=== PATIENT | female | born 1950 | race Caucasian/White ===

== ENCOUNTER 2018-05-28 13:33 | Emergency (ER) | payer BC, MEDICARE, OTHER ==
[2018-05-28 14:00] VITALS: BP 143/62
--- NOTE | 2018-05-28 14:31 | UC ---
Complaint Female HPI - HPI Summary HPI Summary: Patient urgent care today with chief complaint of low back pain and urinary frequency on for 7 days denies fevers chills nausea vomiting. - History Of Current Complaint Hx Obtained From: Patient Hx Last Menstrual Period: n/a ?: No Onset/Duration: Sudden Onset, Lasting Days - 7, Still Present Timing: Constant Severity Currently: Mild Character: Burning, Cramping Aggravating Factor(s): Urination Associated Signs And Symptoms: Positive: Back Pain <Mayuri Brown - Last Filed: 05/28/18 16:59> <Lyle Dyer - Last Filed: 05/29/18 07:01> - History Of Current Complaint Chief Complaint: UCGU Stated Complaint: STOMACH ACHE,URINARY Time Seen by Provider: 05/28/18 14:14 - Allergies/Home Medications Allergies/Adverse Reactions: Allergies Allergy/AdvReac Type Severity Reaction Status Date / Time No Known Allergies Allergy Verified 05/28/18 13:53 Home Medications: Home Medications Budesonide/Formote 160/4.5(NF) [Symbicort 160/4.5 (NF)] 1 puff INH BID 05/28/18 [History Confirmed 05/28/18] PMH/Surg Hx/FS Hx/Imm Hx Endocrine History: Dyslipidemia Cardiovascular History: Hypertension Respiratory History: Asthma GI/ History: Gastroesophageal Reflux - Surgical History Surgical History: Yes Surgery Procedure, Year, and Place: Spinal Stenosis (rods) Repair, 01/01/14, [facility] Bilateral Carpal Tunnel, [facility] - Family History Known Family History: Positive: Hypertension - Social History Occupation: Retired Lives: With Family Alcohol Use: None Substance Use Type: None Smoking Status (MU): Never Smoked Tobacco - Immunization History Most Recent Influenza Vaccination: FALL 2013 <Mayuri Brown - Last Filed: 05/28/18 16:59> Review of Systems Constitutional: Negative Skin: Negative Eyes: Negative ENT: Negative Respiratory: Negative Cardiovascular: Negative Gastrointestinal: Negative Genitourinary: Dysuria, Frequency, Urgency Motor: Negative Neurovascular: Negative Musculoskeletal: Negative Neurological: Negative Psychological: Negative Is Patient Immunocompromised?: No All Other Systems Reviewed And Are Negative: Yes <Mayuri Brown - Last Filed: 05/28/18 16:59> Physical Exam Triage Information Reviewed: Yes Appearance: Well-Appearing, No Pain Distress, Well-Nourished Vital Signs: Initial Vital Signs Temp 98 F 05/28/18 13:56 Pulse 69 05/28/18 13:56 Resp 18 05/28/18 13:56 BP 143/62 05/28/18 13:56 Pulse Ox 100 05/28/18 13:56 Vital Signs Reviewed: Yes Eye Exam: Normal Eyes: Positive: Conjunctiva Clear ENT Exam: Normal ENT: Positive: Normal ENT inspection, Hearing grossly normal. Negative: Trismus , Muffled voice, Hoarse voice Dental Exam: Normal Neck exam: Normal Neck: Positive: Supple, Nontender Respiratory Exam: Normal Respiratory: Positive: Chest non-tender, No respiratory distress, No accessory muscle use Cardiovascular Exam: Normal Cardiovascular: Positive: RRR, Pulses Normal, Brisk Capillary Refill Abdominal Exam: Normal Abdomen Description: Positive: No Organomegaly, Soft, Other: - Supra pubic discomfort. Negative: CVA Tenderness (R), CVA Tenderness (L) Bowel Sounds: Positive: Present Musculoskeletal Exam: Normal Musculoskeletal: Positive: Strength Intact, ROM Intact, No Edema Neurological Exam: Normal Neurological: Positive: Alert, Muscle Tone Normal Psychological Exam: Normal Skin Exam: Normal <Mayuri Brown - Last Filed: 05/28/18 16:59> Vital Signs: Initial Vital Signs Temp 98 F 05/28/18 13:56 Pulse 69 05/28/18 13:56 Resp 18 05/28/18 13:56 BP 143/62 05/28/18 13:56 Pulse Ox 100 05/28/18 13:56 <Lyle Dyer - Last Filed: 05/29/18 07:01> Diagnostics - Laboratory Diagnostic Studies Completed/Ordered: Urine leukoesterace +1 <Mayuri Brown - Last Filed: 05/28/18 16:59> Complaint Female Dx - Course Course Of Treatment: increase fluids, azo bactrim culture urine follow with pcp prn - Differential Dx/Diagnosis Provider Diagnoses: Urinary frequency UTI, hypertension in poor control <Mayuri Brown - Last Filed: 05/28/18 16:59> Discharge - Sign-Out/Discharge Documenting (check all that apply): Discharge/Admit/Transfer - Billing Disposition and Condition Condition: STABLE Disposition: Home <Mayuri Brown - Last Filed: 05/28/18 16:59> - Billing Disposition and Condition Condition: STABLE Disposition: Home <Lyle Dyer - Last Filed: 05/29/18 07:01> - Discharge Plan Condition: Stable Disposition: HOME Prescriptions: Phenazopyridine TAB* [Pyridium 100 mg TAB*] 100 mg PO TID PRN #9 tab PRN Reason: urinary pain and burning Sulfamethox/Trimethoprim DS* [Bactrim DS 800/160 TAB*] 1 tab PO BID #14 tab Patient Education Materials: Phenazopyridine (By mouth), Urinary Tract Infection in Women (ED), Hypertension (ED) Referrals: Sujata Hua PA [Primary Care Provider] - 1 Week Additional Instructions: Per institutional requirements, I have reviewed the chart, however, I was not consulted specifically or made aware of this patient by the above midlevel provider. I did not personally evaluate, interact with , or disposition this patient.
== END 2018-05-28 15:09 | disposition home or self-care (01) ==
LOC: UCCORT 13:33
DX: R35.0 Frequency of micturition (principal); N39.0 Urinary tract infection, site not specified; I10 Essential (primary) hypertension
CPT/HCPCS: 81003; 87086; 99212; G0463

== ENCOUNTER 2018-06-07 10:34 | Emergency (ER) | payer OTHER, MEDICARE ==
[2018-06-07 11:07] VITALS: BP 131/59
[2018-06-07] MEDS ORDERED: Lidocaine 1% MPF* 2 ML VIAL INJ ONE (11:20)
[2018-06-07] MEDS ORDERED: cefTRIAXone VIAL(*) 1,000 MG VIAL IM ONE (11:20)
--- NOTE | 2018-06-07 11:27 | UC ---
Complaint Female HPI - HPI Summary HPI Summary: She had a uti treated here about 2-3 weeks ago. She felt better for about 10 days. She now has dysuria and flank pain. No vomiting. No fever or chills. - History Of Current Complaint Chief Complaint: UCGU Stated Complaint: URINARY Time Seen by Provider: 06/07/18 11:09 Hx Obtained From: Patient Hx Last Menstrual Period: n/a Onset/Duration: Gradual Onset, Lasting Days Timing: Constant, Lasting Hours Severity Initially: Mild Severity Currently: Moderate Pain Intensity: 5 Character: Dull, Burning Aggravating Factor(s): Urination Alleviating Factor(s): Position Associated Signs And Symptoms: Positive: Back Pain, Nausea. Negative: Fever, Vaginal Bleeding/Discharge, Vaginal Discharge, Vomiting(# Of Episodes =), Genital Swelling, Genital Blisters - Allergies/Home Medications Allergies/Adverse Reactions: Allergies Allergy/AdvReac Type Severity Reaction Status Date / Time No Known Allergies Allergy Verified 05/28/18 13:53 PMH/Surg Hx/FS Hx/Imm Hx Previously Healthy: No - Surgical History Surgical History: Yes Surgery Procedure, Year, and Place: Spinal Stenosis (rods) Repair, 01/01/14, [facility]. Bilateral Carpal Tunnel, [facility] - Family History Known Family History: Positive: Hypertension - Social History Alcohol Use: None Substance Use Type: None Smoking Status (MU): Never Smoked Tobacco - Immunization History Most Recent Influenza Vaccination: FALL 2013 Review of Systems Constitutional: Negative Gastrointestinal: Abdominal Pain - diffuse abdominal achiness., Nausea Genitourinary: Dysuria, Hematuria, Frequency All Other Systems Reviewed And Are Negative: Yes Physical Exam Triage Information Reviewed: Yes Appearance: Well-Appearing, No Pain Distress, Well-Nourished Vital Signs: Initial Vital Signs Temp 98.1 F 06/07/18 10:58 Pulse 76 06/07/18 10:58 Resp 16 06/07/18 10:58 BP 131/59 06/07/18 10:58 Pulse Ox 98 06/07/18 10:58 Vital Signs Reviewed: Yes Eye Exam: Normal Eyes: Positive: Conjunctiva Clear ENT Exam: Normal ENT: Positive: Normal ENT inspection Neck: Positive: Supple, Nontender, No Lymphadenopathy Respiratory: Positive: Chest non-tender, Lungs clear, Normal breath sounds Cardiovascular: Positive: RRR, No Murmur, Pulses Normal Abdomen Description: Positive: No Organomegaly, Soft, CVA Tenderness (R), CVA Tenderness (L). Negative: Distended, Guarding Musculoskeletal: Positive: Strength Intact, ROM Intact, No Edema Neurological: Positive: Alert, Muscle Tone Normal. Negative: Fatigued Psychological: Positive: Normal Response To Family, Age Appropriate Behavior Skin: Negative: rashes Complaint Female Dx - Course Course Of Treatment: Non toxic. vitals wnl. She is comfortable appearing. THere are gal flank pain tenderness. Likely not kidney stones as this is gal and not sudden onset. - Differential Dx/Diagnosis Differential Diagnosis/HQI/PQRI: Appendicitis, Bartholin Cyst, Cervicitis, Ectopic, Endometriosis, Ovarian Cyst, Ovarian Torsion, Pelvic Inflammatory Disease, Renal Colic, Sexually Transmitted Disease, Tubo-ovarian Abscess, Ureteral Stone, Urinary Tract Infection Provider Diagnoses: ascending UTI Discharge - Sign-Out/Discharge Documenting (check all that apply): Patient Departure - Discharge Plan Condition: Good Disposition: HOME Prescriptions: Fluconazole 150 MG (NF) [Diflucan 150 mg (NF)] 150 mg PO ONCE #1 tab Nitrofurantoin Macrocrystals* [Macrodantin 100 mg*] 100 mg PO BID #20 cap Patient Education Materials: Dysuria (ED), Urinary Tract Infection in Women (ED ) Referrals: Sujata Hua PA [Primary Care Provider] - - Billing Disposition and Condition Condition: GOOD Disposition: Home
== END 2018-06-07 12:12 | disposition home or self-care (01) ==
LOC: UCCORT 10:34
DX: N39.0 Urinary tract infection, site not specified (principal)
CPT/HCPCS: 81003; 87086; 96372; 99212; G0463; J0696

== ENCOUNTER 2019-07-06 12:19 | Emergency (ER) | payer MEDICARE, OTHER ==
[2019-07-06 12:47] VITALS: BP 130/61
--- NOTE | 2019-07-06 12:57 | UC ---
Skin Complaint HPI - HPI Summary HPI Summary: 68-year-old female who was stung by a bee on the dorsum of her right hand last evening. She put some Benadryl cream on the area. She wanted it checked today. - History of Current Complaint Chief Complaint: UCSkin Time Seen by Provider: 07/06/19 12:37 Stated Complaint: RIGHT HAND STING Hx Obtained From: Patient Hx Last Menstrual Period: n/a ?: No Onset/Duration: Sudden Onset Skin Exposure Onset/Duration: Worse Since: - Patient states the area has improved since last evening. Timing: Constant Onset Severity: Moderate Current Severity: Mild Pain Intensity: 5 Location: Hand (Right) Character: Swelling, Painful - Mildly tender on palpation. Aggravating Factor(s): Touch Alleviating Factor(s): Antihistamines - Benadryl topical cream has improved the swelling and redness. Associated Signs & Symptoms: Positive: Tenderness Related History: Insect Bite/Sting - Allergy/Home Medications Allergies/Adverse Reactions: Allergies Allergy/AdvReac Type Severity Reaction Status Date / Time No Known Allergies Allergy Verified 07/06/19 12:47 Home Medications: Home Medications Acetaminophen [Acetaminophen Extra Strength] 1,000 mg PO ONCE PRN 07/06/19 [ History Confirmed 07/06/19] PMH/Surg Hx/FS Hx/Imm Hx Previously Healthy: Yes Cardiovascular History: Hypertension Respiratory History: Asthma - Surgical History Surgical History: Yes Surgery Procedure, Year, and Place: Spinal Stenosis (rods) Repair, 01/01/14, [facility]. Bilateral Carpal Tunnel, [facility] - Family History Known Family History: Positive: Hypertension - Social History Occupation: Retired Alcohol Use: None Substance Use Type: None Smoking Status (MU): Never Smoked Tobacco - Immunization History Most Recent Influenza Vaccination: FALL 2013 Review of Systems All Other Systems Reviewed And Are Negative: Yes Skin: Positive: Other - Swelling and mild redness to the dorsum of her right hand which has improved today. Is Patient Immunocompromised?: No Physical Exam Triage Information Reviewed: Yes Appearance: Well-Appearing, No Pain Distress, Well-Nourished Vital Signs: Initial Vital Signs Temp 98.2 F 07/06/19 12:41 Pulse 74 07/06/19 12:41 Resp 16 07/06/19 12:41 BP 130/61 07/06/19 12:41 Pulse Ox 100 07/06/19 12:41 Vital Signs Reviewed: Yes Musculoskeletal: Positive: Strength Intact, ROM Intact, Other: - Good peripheral pulses neuro sensation and capillary refill. Good finger strength with flexion extension against resistance. Neurological: Positive: Alert, Muscle Tone Normal Psychological Exam: Normal Skin: Positive: Other - Mild erythema and minimal swelling to the dorsum of her right hand with mild tenderness on palpation. No Streaking. Course/Dx - Course Course Of Treatment: Patient is comfortable here. She can continue the Benadryl cream to the area elevate as much as possible and apply cool compresses to the area. She is to follow-up with her primary care provider if she develops any red streaks up her arm, fever or chills or any further complaints - Diagnoses Provider Diagnosis: Insect bite Discharge - Sign-Out/Discharge Documenting (check all that apply): Patient Departure All imaging exams completed and their final reports reviewed: No Studies - Discharge Plan Condition: Good Disposition: HOME Patient Education Materials: Insect Bite or Sting (ED) Referrals: Sujata Hua PA [Primary Care Provider] - Additional Instructions: May take Benadryl as directed or apply Benadryl cream to the area as directed. Apply ice intermittently throughout the day and elevate as much as possible. If you develop increased swelling, redness, red streaks up your arm then you are to follow-up with your primary care provider. - Billing Disposition and Condition Condition: GOOD Disposition: Home
== END 2019-07-06 13:03 | disposition home or self-care (01) ==
LOC: UCCORT 12:19
DX: Z51.89 Encounter for other specified aftercare (principal); T63.441A Toxic effect of venom of bees, accidental (unintentional), initial encounter; Y92.9 Unspecified place or not applicable; I10 Essential (primary) hypertension
CPT/HCPCS: 99211; G0463

== ENCOUNTER 2019-09-03 07:38 | Emergency (ER) | payer OTHER ==
[2019-09-03 07:48] VITALS: BP 153/66
[2019-09-03] MEDS ORDERED: Albuterol/Ipratropium NEB.SOL* Albuterol 2.5 MG/Ipratropium 0.5 MG 3 ML INH ONE (07:58)
--- NOTE | 2019-09-03 08:09 | UC ---
Respiratory Complaint HPI - HPI Summary HPI Summary: Patient is 69-year-old female presenting with her for symptoms 1 week and worsening shortness of breath since this morning. States she "can't catch her breath." Notes chest congestion and productive cough. Patient is unsure of fever, but notes chills. Notes one episode of vomiting this morning. Denies abdominal pain. Denies diarrhea and urinary symptoms. Patient notes history of asthma. - History of Current Complaint Chief Complaint: UCGeneralIllness Stated Complaint: COUGH,FEELING HOT,CONGESTION,ASTHMA Hx Obtained From: Patient Hx Last Menstrual Period: n/a Onset/Duration: Gradual Onset Pain Intensity: 0 - Allergies/Home Medications Allergies/Adverse Reactions: Allergies Allergy/AdvReac Type Severity Reaction Status Date / Time No Known Allergies Allergy Verified 09/03/19 07:48 Home Medications: Home Medications Phenylephrine/Dm/Acetaminop/GG [Cold & Flu Severe Daytime 4-00-336-325 mg] 1 tab PO ONCE 09/03/19 [History Confirmed 09/03/19] PMH/Surg Hx/FS Hx/Imm Hx Endocrine History: Dyslipidemia Cardiovascular History: Hypertension - Surgical History Surgical History: Yes Surgery Procedure, Year, and Place: Spinal Stenosis (rods) Repair, 01/01/14, [facility] Bilateral Carpal Tunnel, [facility] - Family History Known Family History: Positive: Hypertension - Social History Alcohol Use: None Substance Use Type: None Smoking Status (MU): Never Smoked Tobacco - Immunization History Most Recent Influenza Vaccination: FALL 2013 Review of Systems All Other Systems Reviewed And Are Negative: Yes Constitutional: Positive: Chills. Negative: Fever Eyes: Positive: Negative ENT: Positive: Sore Throat, Nasal Discharge, Sinus Congestion. Negative: Ear Ache, Sinus Pain/Tenderness Respiratory: Positive: Shortness Of Breath, Cough Cardiovascular: Positive: Negative. Negative: Palpitations, Chest Pain Gastrointestinal: Positive: Vomiting, Nausea. Negative: Abdominal Pain, Diarrhea Genitourinary: Positive: Negative Musculoskeletal: Positive: Myalgia. Negative: Arthralgia Neurological: Positive: Headache Physical Exam Triage Information Reviewed: Yes Appearance: Well-Nourished, Ill-Appearing, Pain Distress Vital Signs: Initial Vital Signs Temp 98.3 F 09/03/19 07:43 Pulse 98 09/03/19 07:43 Resp 26 09/03/19 07:43 BP 153/66 09/03/19 07:43 Pulse Ox 98 09/03/19 07:43 Vital Signs Reviewed: Yes Eyes: Positive: Conjunctiva Inflamed ENT: Positive: Hearing grossly normal, Pharyngeal erythema, Nasal congestion, Nasal drainage, TMs normal, Uvula midline. Negative: TM bulging, TM dull, TM red, Tonsillar swelling, Tonsillar exudate Neck exam: Normal Neck: Positive: Supple, Nontender, No Lymphadenopathy Respiratory: Positive: No respiratory distress, No accessory muscle use, Wheezing - mild, diffuse, Other: - Tachypnea noted Cardiovascular Exam: Normal Cardiovascular: Positive: RRR, Tachycardia Neurological: Positive: Alert Psychological: Positive: Age Appropriate Behavior Diagnostics - Radiology chest xray Radiology Interpretation Completed By: Radiologist Summary of Radiographic Findings: IMPRESSION: FINDINGS CONSISTENT WITH COPD, NO EVIDENCE FOR ACUTE DISEASE. Respiratory Course/Dx - Course Course Of Treatment: Patient received DuoNeb and dose of prednisone here. Patient's x-rays are consistent with COPD. Discussed chronic changes noted on the x-ray with the patient. Instructed her to continue use of nebulizer and take doxycycline and prednisone as prescribed. Strongly encourage her to follow up with her PCP as soon as possible for further evaluation. Patient noted feeling better while here. Vital signs are normal and patient is in no respiratory distress. Patient voiced understanding and agreed with treatment plan. - Differential Dx/Diagnosis Provider Diagnosis: Bronchitis, Shortness of breath Discharge ED - Sign-Out/Discharge Documenting (check all that apply): Patient Departure All imaging exams completed and their final reports reviewed: Yes - Discharge Plan Condition: Stable Disposition: HOME Prescriptions: DOXYcycline CAP(*) [DOXYcycline 100MG CAP(*)] 200 mg PO DAILY #14 cap predniSONE TAB* [Deltasone TAB*] 50 mg PO DAILY #4 tab Patient Education Materials: Shortness of Breath (ED) Referrals: Sujata Hua PA [Primary Care Provider] - As Soon As Possible Additional Instructions: As discussed, there are chronic changes noted on x-rays today. You may continue with your nebulizer every 6 hours as needed for shortness of breath. Take doxycycline as prescribed for treatment of possible infection. Take prednisone as prescribed to help reduce inflammation. It is important that you follow-up with your PCP as soon as possible for further evaluation. Return or go to the emergency room if your symptoms worsen. - Billing Disposition and Condition Condition: STABLE Disposition: Home - Attestation Statements Provider Attestation: I was available for consult. This patient was seen by the FRANKIE. The patient was not presented to, seen by, or examined by me. -Rich
[2019-09-03] MEDS ORDERED: predniSONE TAB* 10 MG PO ONE (08:28)
== END 2019-09-03 09:17 | disposition home or self-care (01) ==
LOC: UCCORT 07:38
DX: J40 Bronchitis, not specified as acute or chronic (principal); R06.02 Shortness of breath; I10 Essential (primary) hypertension; R09.81 Nasal congestion; R09.89 Other specified symptoms and signs involving the circulatory and respiratory systems; R11.2 Nausea with vomiting, unspecified; M79.10 Myalgia, unspecified site; H57.89 Other specified disorders of eye and adnexa
CPT/HCPCS: 71046; 99212; A9270-GY; G0463; J7512